=== PATIENT | female | born 1950 | race Caucasian/White ===

== ENCOUNTER → 2020-10-21 | Outpatient (CLI) | payer BC, MEDICARE ==
[~2020-10-21] MED LIST: ACET65TA OR; CLAR5CHW PO; COUM1TAB18 OR; ONDA-1 OR; PERC5TAB8 OR; PERC7.5T8 OR; PROHANCE 279.3MG/ML 15ML VIAL As Ordered ONE; PROHANCE 279.3MG/ML 5ML VIAL As Ordered ONE; PROT1TAB2 PO
--- NOTE | 2020-10-24 16:58 | REP ---
INDICATION: KNOWN LT BREAST CA. COMPARISON: Mammogram 09/06/2020, ultrasound 09/15/2020. TECHNIQUE: [facility] MRI imaging was performed with a dedicated breast coil. Axial, coronal, and sagittal T1 and T2 weighted scans were obtained with and without fat saturation in the usual fashion. The study includes dynamically acquired post gadolinium-enhanced imaging with image subtraction. Maximum intensity projection and multi planar reformation imaging is included as well. This study is interpreted with the aid of [employer], an FDA approved computer aided detection (CAD) software program, on a dedicated breast MRI workstation. The gadolinium enhancement dose is 17 mL of intravenous ProHance. FINDINGS: There is moderate fibroglandular tissue present bilaterally. There is mild bilateral background parenchymal enhancement. No significantly enlarged lymph nodes are seen bilaterally. There is no significant cystic change. At the 6 o'clock position of the left breast there is a spiculated mass, with washout enhancement characteristics, which measures approximately 1.3 cm maximum diameter. Internal biopsy clip is noted. This represents the known carcinoma which was recently biopsied. It is approximately 6 cm from the nipple. More superiorly the 12 o'clock position of the left breast there is a spiculated nodular structure which measures approximately 1.2 cm in maximum diameter. This demonstrates predominantly plateau type 2 enhancement. This has a suspicious appearance. This is approximately 4 cm from the nipple. IMPRESSION: BI-RADS category 6 known left breast cancer. The recently biopsied spiculated nodule at 6 o'clock is identified, approximately 6 cm from the nipple with a maximum diameter of approximately 1.3 cm. However, a 2nd spiculated nodule is seen at the 12 o'clock position approximately 4 cm from the nipple, with maximum diameter 1.2 cm. Recommend second-look ultrasound left breast at 12 o'clock to identify this nodule for potential ultrasound guided biopsy. <Electronically signed by Hermilo Kumar > 10/24/20 0116
== END ==
LOC: M RAD 14:19
PROVIDERS: ATTEND Surgery
DX: C50.312 Malignant neoplasm of lower-inner quadrant of left female breast (principal)
CPT/HCPCS: A9576; C8908

== ENCOUNTER → 2020-11-03 | Outpatient (CLI) | payer MEDICARE ==
[~2020-11-03] MED LIST changes: +ACET1TAB55 PO; +B-122500 PO; +EMER1PAK PO; +ESSETAB4 PO; +MELA3TAB21 PO; +OXYC-517 PO; +PANT40TA29; -PROHANCE 279.3MG/ML 15ML VIAL As Ordered ONE; -PROHANCE 279.3MG/ML 5ML VIAL As Ordered ONE
== END ==
LOC: M LABSMTC 11:51
PROVIDERS: ATTEND Anesthesiology
DX: Z01.812 Encounter for preprocedural laboratory examination (principal); Z20.822 Contact with and (suspected) exposure to COVID-19

== ENCOUNTER 2020-11-08 10:33 | Day surgery (SDC) | payer MEDICARE ==
[~2020-11-08] VITALS: Ht 171.4 cm; Wt 88.5 kg
[~2020-11-08 10:33] MED LIST changes: -ACET1TAB55 PO; +HEPARIN SOD (PORCINE) 5000UNITS/ML 1ML VIAL/SYRINGE SQ ONE; +LR 1,000 ML IV ONE; -OXYC-517 PO; +ceFAZolin SOD 2 GM in IV 1 EA IV ONE
[2020-11-08] MEDS ORDERED: SCOPOLAMINE 1MG TRANSDERMAL PATCH TOP ONE (11:45)
[2020-11-08] MEDS ORDERED: ONDANSETRON 4MG/2ML VIAL As Ordered ONE (12:51)
[2020-11-08] MEDS ORDERED: LIDOCAINE 2% 100MG/5ML SDV (FOR ANES.) As Ordered ONE (12:51)
[2020-11-08] MEDS ORDERED: dexameTHASONE 4 MG/ML 1ML VIAL (J1100 PER 1MG) As Ordered ONE (12:51)
[2020-11-08] MEDS ORDERED: propofoL 200 MG/20 ML VIAL As Ordered ONE ×2 (12:51→16:47)
[2020-11-08] MEDS ORDERED: ROCURONIUM BROMIDE 50 MG/5 ML VIAL As Ordered ONE ×2 (12:51→15:11)
[2020-11-08] MEDS ORDERED: MIDAZOLAM INJ 2MG/2ML VIAL (J2250 PER 1MG) As Ordered ONE (12:52)
[2020-11-08] MEDS ORDERED: fentaNYL 250 MCG/5 ML INJECTION (J3010) As Ordered ONE (12:52)
--- NOTE | 2020-11-08 14:06 | REP ---
INDICATION: LEFT BREAST CA. COMPARISON: None. TECHNIQUE/RADIOTRACER AND DOSE: This procedure was performed by Connie Hernandez [facility], under the direct supervision of Dr. Mohr. Images were reviewed with Dr. Mohr prior to dictation. The risks and benefits of the procedure were explained to the patient and informed consent was obtained both orally and written. Directly prior to the start of the procedure, a formal timeout was done in the exam room. Using topical anesthetic and sterile technique 1.025 mCi of filtered Technetium-99m sulfur colloid was injected subdermally in 8 fractionated periareolar injections. FINDINGS: Images obtained 1 hour after injection shows saroj uptake in the left axilla. IMPRESSION: There is saroj uptake in the left axilla. <Electronically signed by Connie Hernandez > 11/08/20 1356 <Electronically signed by Tarik Mohr > 11/08/20 [id number]
[2020-11-08] MEDS ORDERED: BUPIVACAINE LIPOSOME/PF 1.3% 20ML VIAL (13.3MG/ML)(EXPAREL)(C9290 PER1MG) As Ordered ONE (14:08)
[2020-11-08] MEDS ORDERED: METHYLENE BLUE 0.5% (5MG/ML) 10 ML AMP (PROVAYBLUE) As Ordered ONE (14:13)
[2020-11-08] MEDS ORDERED: ISOSULFAN BLUE(LYMPHAZURIN) 1% 50MG/5ML VIAL As Ordered ONE (14:15)
[2020-11-08] MEDS ORDERED: METOCLOPRAMIDE INJ 10MG/2ML VIAL (J2765 PER 1) As Ordered ONE (15:14)
[2020-11-08] MEDS ORDERED: REMIFENTANIL 1MG 3ML VIAL As Ordered ONE (15:36)
[2020-11-08] MEDS ORDERED: ePHEDrine SULFATE 25 MG/5 ML(5MG/ML) SYRINGE As Ordered ONE (16:06)
[2020-11-08] MEDS ORDERED: PHENYLephrine 500MCG 5ML (100MCG/ML) SYRINGE As Ordered ONE (16:07)
[2020-11-08] MEDS ORDERED: ACETAMINOPHEN 1000MG 100ML IV BTL (OFIRMEV) (J0131 PER 10MG) As Ordered ONE (16:08)
[2020-11-08] MEDS ORDERED: GLYCOPYRROLATE INJ 0.2 MG/ML 2 ML VIAL As Ordered ONE (16:14)
[2020-11-08] MEDS ORDERED: NEOSTIGMINE 10MG/10ML VIAL (J2710 PER 0.5MG) As Ordered ONE (16:14)
[2020-11-08] MEDS ORDERED: SUGAMMADEX SODIUM 500 MG/5 ML VIAL (BRIDION) As Ordered ONE (16:15)
[2020-11-08] MEDS ORDERED: HYDROmorphone HCL 2 MG/ML 1ML VIAL (J1170) As Ordered ONE (16:19)
[2020-11-08] MEDS ORDERED: traMADol 50 MG TAB PO PRN (17:45)
[2020-11-08] MEDS ORDERED: ONDANSETRON 4MG/2ML VIAL IV PRN ×2 (17:45→19:00)
[2020-11-08] MEDS ORDERED: MORPHINE 2 MG/ML 1ML VIAL (J2270) IV PRN (17:45)
[2020-11-08] MEDS ORDERED: MAALOX 30 ML SUSP *UDC PO PRN (18:15)
[2020-11-08] MEDS ORDERED: MOM 30ML SUSPENSION UDC PO PRN (18:15)
[2020-11-08 18:20] VITALS: BP 118/65
--- NOTE | 2020-11-08 18:24 | HPEPDOC ---
[facility] Medical History & Physical Date of Admission Nov 08, 2020 Date of Service: Nov 08, 2020 History and Physical CHIEF COMPLAINT: Postoperative observation HISTORY OF PRESENT ILLNESS: 70-year-old female past medical history of GERD today underwent left breast mastectomy for breast cancer and sentinel node biopsy by Dr. Vuong who asked me to admit the patient for observation. I saw the patient in PACU postoperatively she tells me she's feeling well and pain is controlled and wants to try to eat this evening. Patient has no complaints at this time. PAST MEDICAL/SURGICAL HISTORY: GERD Hysterectomy Cataract surgery Bilateral knee replacement SOCIAL HISTORY: Denies alcohol use actively quit a few months ago used to drink red wine nightly Denies tobacco use actively quit a few months ago Denies illicit drug use FAMILY HISTORY: Mother has a history of breast cancer ALLERGIES: Please see below. REVIEW OF SYSTEMS: 10 point review of systems complete all negative otherwise stated in HPI HOME MEDICATIONS: Please see below. PHYSICAL EXAMINATION: Constitutional: Awake and alert, in no apparent distress ENT: Sclera are clear. Mucosa is moist. Respiratory: Lungs CTA bilaterally. No respiratory distress. No use of accessory muscles. Dressing in place on left breast [address] one axilla and one at the mastectomy site. Serosanguineous drainage Cardiovascular: RRR S1 and S2 are normal, no murmur Gastrointestinal: Abdomen is soft, non distended, non tender, BS present. Musculoskeletal: No lower extremity edema. Neurologic: No focal neurological deficit. Mental Status: A&O x3, normal affect Skin: Warm, dry LABORATORY DATA: See below. IMAGING: See chart MICROBIOLOGY: Please see below. ASSESSMENT/PLAN 70-year-old female admitted for observation postoperatively after left breast mastectomy without completions. # Left breast mastectomy: Managed by Dr. Justice breast surgeon. Admit for observation overnight. CLD. PT/OT eval. Pain control. Zofran for nausea. Cefazolin perioperative. # GERD: Continue Protonix # DVT prophylaxis: Heparin A Yousef Hospitalist Vital Signs Vital Signs Date Time Temp Pulse Resp B/P (MAP) Pulse Ox O2 Delivery O2 Flow Rate FiO2 11/08/20 18:00 97.6 87 18 120/56 (77) 95 Room Air 11/08/20 17:35 2 Home Medications Scheduled Cyanocobalamin (Vitamin B-12) (Vitamin B12) 2,500 Mcg Tablet, 1,000 MCG PO DAILY Melatonin (Melatonin) 3 Mg Tablet.er, 3 MG PO QPM Pantoprazole Sodium (Pantoprazole Sodium) 40 Mg Tablet.dr, DAILY Miscellaneous Medications Ascorbic Acid/Multivit-Min (Emergen-C 1,000 mg Packet) 1,000 Mg Effpowdpkt, 1 JEFF PO Allergies Coded Allergies: ENVIROMENTAL (Verified Allergy, Unknown, 11/02/20) A-FIB/CHADSVASC A-FIB History Current/History of A-Fib/PAF?: No NADIYA GONZALES MD Nov 08, 2020 18:24
[2020-11-08] MEDS: LR 1,000 ML IV SCH (18:51)
[2020-11-08 18:56] LABS: BASO % 0.3 % (0.0-1.0); EOS % 0.1 % (0.0-3.0); HEMATOCRIT 42.9 % (36.0-47.0); HEMOGLOBIN 14.2 g/dl (12.0-15.5); LYMPH # 0.9 10^3/uL (1.5-5.0); LYMPH % 8.1 % (24.0-44.0); MEAN CORPUSCULAR HEMOGLOBIN 32.9 pg (27.0-33.0); MEAN CORPUSCULAR HGB CONC 33.1 g/dl (32.0-36.5); MEAN CORPUSCULAR VOLUME 99.5 fl (80.0-96.0); MONO # 0.2 10^3/uL (0.0-0.8); MONO % 1.4 % (0.0-5.0); NEUTROPHILS # 10.3 10^3/uL (1.5-8.5); NEUTROPHILS % 89.7 % (36.0-66.0); PLATELET COUNT, AUTOMATED 169 10^3/uL (150-450); RED BLOOD COUNT 4.31 10^6/uL (4.00-5.40); WHITE BLOOD COUNT 11.4 10^3/uL (4.0-10.0)
[2020-11-08] MEDS ORDERED: HYDROMORPHONE HCL 0.5 MG/ 0.5 ML SYRINGE (J1170 PER 1) IV PRN (19:00)
[2020-11-08] MEDS ORDERED: LR 1,000 ML IV SCH (19:00)
[2020-11-08] MEDS ORDERED: oxyCODONE 5MG TAB PO PRN (19:00)
[2020-11-08] MEDS ORDERED: fentaNYL 100 MCG/2 ML INJECTION (J3010) IV PRN (19:00)
[2020-11-08 19:20] VITALS: BP 118/62
[2020-11-08 19:21] LABS: BLOOD UREA NITROGEN 11 MG/DL (7-18); CALCIUM LEVEL 10.1 MG/DL (8.8-10.2); CARBON DIOXIDE LEVEL 27 MEQ/L (21-32); CHLORIDE LEVEL 107 MEQ/L (98-107); CREATININE FOR GFR 0.68 MG/DL (0.55-1.30); GLOMERULAR FILTRATION RATE > 60.0 (>45); GLUCOSE, FASTING 146 MG/DL (70-100); POTASSIUM SERUM 3.5 MEQ/L (3.5-5.1); SODIUM LEVEL 141 MEQ/L (136-145)
[2020-11-08 20:00] VITALS: BP 115/64
[2020-11-08 20:20] VITALS: BP 92/46
[2020-11-08] MEDS ORDERED: PANTOPRAZOLE 20 MG TAB PO SCH (21:00)
[2020-11-08 21:20] VITALS: BP 91/51
[2020-11-08] MEDS: ACETAMINOPHEN TAB 650MG DOSE (2X325MG) PO PRN (21:27)
[2020-11-08] MEDS: DOCUSATE SODIUM 100MG CAPSULE PO SCH (21:27)
[2020-11-08] MEDS: HEPARIN SOD (PORCINE) 5000UNITS/ML 1ML VIAL/SYRINGE SC SCH (21:27)
[2020-11-08] MEDS: ceFAZolin SOD 2 GM in IV 1 EA IV SCH (21:28)
--- NOTE | 2020-11-08 21:59 | ROOPDOC ---
[facility] Report Of Operation Report of Operation DATE OF PROCEDURE: 11/08/20 PREPROCEDURE DIAGNOSES: Lest breast cancer ans second suspicious left breast lesion seen on MRI POSTPROCEDURE DIAGNOSES: same PROCEDURE: Left simple mastectomy with intraop methylene blue injection, Left sentinel lymph node biopst, left pectoralis and serratus muscle block with Exparel SURGEON: Caroline Barraza ANESTHESIA: general ESTIMATED BLOOD LOSS: Approximately 50 mL. COMPLICATIONS: none REMARKS: one sentinel lymph node identified DESCRIPTION OF PROCEDURE: INDICATIONS: Ms. Frazier is a 70 year old lady who was found to have left breast cancer and second suspicious lesion in the left breast. Second look US was offered to the patient to evaluate the second lesion, however, patient expressed that she is interested in mastectomy. At this time there is no need for second look US of the left breast as the whole breast will be removed. I also explained to the patient that because she has invasive breast cancer we need to evaluate her lymph nodes with sentinel lymph node biopsy. Risks and possible complications of surgical procedure including bleeding, infection and injury to surrounding structures were explained to the patient and she wished to proceed. Consent was signed. Subcutaneous heparin 5000 units was given to patient in the preop area. Lymphoscintigraphy was reviewed preoperatively and the tracer was found in the left axilla. Patient was marked in the preop area when she was sitting up to allow best cosmetic results. DETAILS: Patient was taken to the operating room and placed supine on the operating room table. Pillow was placed under her knees. Foam was placed under her heels. A sign in was called stating patients name, date of and the procedure to be done. Preoperative antibiotics were infused. Smooth induction of general anesthesia was done. Patients hands were extended on arm rests. Care was taken not to over extend patients arms. Sequential compression devices were placed and assured to function correctly. Patients left breast and axilla were prepped and draped in the usual fashion. Neoprobe was used to juan francisco the site of maximal signal in the axilla although the strength of signal was low. Methylene blue subdermal injection was done into periareolar and right upper outer quadrant to improve probability of finding sentinel lymph nodes. The breast was massaged for a 5 minutes post injection. Since there is no Hydromark clip present and the cancer is hard to see on the periop ultrasound, no location was marked on the specimen. Appropriate time out was done and patients name, date of , and the procedure to be done were confirmed. Procedure was started with left mastectomy. The incision was made along the previously marked border to achieve the scar at the inframammary fold. Subcutaneous flaps were developed using electrocautery dissection. Dissection was carried toward the inframammary fold inferiorly, toward sternum medially, toward inferior aspect of clavicle superiorly and toward the axilla laterally. Breast tissue was dissected from the muscle posteriorly and pectoralis fascia was taken with the specimen. The dissection was carried all the way to the T[place] of [place] making sure that axilla is not en tered prematurely. Breast specimen was marked for orientation with short stitch marking superior edge of mastectomy and long stitch marking lateral edge of mastectomy. The specimen was weighted and weight of 586 grams was reported. The specimen was then placed in formaldehyde, and passed to pathology. Mastectomy cavity was irrigated and hemostasis was achieved. Next, our attention was turned toward the left axilla which was accessed from the mastectomy site. Clavipectoral fascia was opened over the site of maximum Neoprobe signal. No obvious blue nodes were seen. No blue lymphatics were noted either. Area of high signal was identified under the pectoralis major, deep in axilla. One sentinel lymph node was identified and 10 second ex-vivo count was 2755. This was not a blue node. Specimen was labeled appropriately and sent to pathology. Axilla was explored for presence of any additional lymph nodes and none were identified. 10 second count of the background was 6. The axilla was irrigated and hemostasis was achieved. Next, clavipectoral fascia was loosely approximated with interrupted 3-0 Vicryl Stitches. At this point, 19 [place] Jung drain was placed into the mastectomy cavity through a separate stab incision and secured at the skin with stitches. The 10 [place] Jung drain was placed in the axilla through a separate stab incision and secures at the skin with stitches. Next, pectoral and serratus plane blocks on the left side were also done with Exparel. Deep dermal sutures were placed with 2-0 Vicryl to approximate mastectomy site edges. Dermis was closed with 3-0 Vicryl. Skin was closed with 4-0 Monocryl. Surgical glue was applied to the top of the incision. Prineo skin closing system dressing was applied next to the incision. Surgical gauze was placed over the incision and surgical bra was placed. Final instruments and sponge count were correct. Patient emerged from general anesthesia without any problems. Patient tolerated procedure well and was taken to recovery unit in stable condition. CAROLINE BARRAZA DO Nov 08, 2020 21:59
[2020-11-08 23:00] VITALS: BP_SYST 100; BP_SYST 90; BP_DIAS 44; BP_DIAS 52
[2020-11-09] MEDS: LR 1,000 ML IV SCH (01:26)
[2020-11-09 02:00] VITALS: BP 110/62
[2020-11-09] MEDS: ceFAZolin SOD 2 GM in IV 1 EA IV SCH ×2 (04:57→12:01)
[2020-11-09 06:00] VITALS: BP 106/64
[2020-11-09] MEDS: DOCUSATE SODIUM 100MG CAPSULE PO SCH (08:06)
[2020-11-09] MEDS: HEPARIN SOD (PORCINE) 5000UNITS/ML 1ML VIAL/SYRINGE SC SCH (08:06)
[2020-11-09] MEDS: ACETAMINOPHEN TAB 650MG DOSE (2X325MG) PO PRN (08:06)
--- NOTE | 2020-11-09 08:21 | IPNPDOC ---
Subjective Date Seen The patient was seen on 11/09/20. Subjective Chief Complaint/HPI 70-year-old lady with left breast cancer status post left breast simple mastectomy and left sentinel lymph node biopsy done yesterday, admitted to the hospital for observation and pain control. Patient did well overnight. There were no acute events. She was hemodynamically stable. Drain output is low. Pain is well-controlled. Patient's nausea is also well controlled. She was able to tolerate some solid foods this morning. Objective Physical Examination Other physical findings Alert and oriented 3 Breathing comfortably on room air Left mastectomy site without hematoma, [address] with small amount of serous sanguinous drainage. Both drains were stripped at bedside. Mastectomy flaps are viable. Patient has good range of motion Abdomen nondistended Assessment /Plan Assessment 70-year-old woman with left breast cancer status post left breast simple mastectomy and left sentinel lymph node biopsy done yesterday. - Drain teaching by nursing staff today, record output per 24h, please bring this to the clinic next Saturday at 1 PM - Pain control, Tylenol [id number] and can be discharged with oxycodone 5 every 6h when necessary - No need for outpatient antibiotics, complete perioperative antibiotics today - Okay to discharge home today at noon as long as she tolerates lunch without nausea - Stop IVF - Encourage ambulation and incentive spirometer - Please keep patient my postop instructions regarding simple mastectomy - Plan was discussed with nursing staff this morning. Plan/VTE VTE Prophylaxis Ordered?: Yes VS, I&O, 24H, Fishbone Vital Signs/I&O Vital Signs Date Time Temp Pulse Resp B/P (MAP) Pulse Ox O2 Delivery O2 Flow Rate FiO2 11/09/20 06:00 98.6 54 18 106/64 (78) 94 Room Air 11/09/20 02:00 2.0 I&O- Last 24 Hours up to 6 AM 11/09/20 06:00 Intake Total 2310 ml Output Total 1160 ml Balance 1150 ml Laboratory Data 24H LABS Laboratory Tests 2 11/08/20 18:42: Immature Granulocyte % (Auto) 0.4, Neutrophils (%) (Auto) 89.7H, Lymphocytes (%) (Auto) 8.1L, Monocytes (%) (Auto) 1.4, Eosinophils (%) (Auto) 0.1, Basophils (%) (Auto) 0.3, Neutrophils # (Auto) 10.3H, Lymphocytes # (Auto) 0.9L, Monocytes # (Auto) 0.2, Eosinophils # (Auto) 0.0, Basophils # (Auto) 0.0, Nucleated Red Blood Cells % (auto) 0.0, Anion Gap 7L, Glomerular Filtration Rate > 60.0, Calcium Level 10.1 CBC/BMP Laboratory Tests 11/08/20 18:42 VIJI BARRAZA DO Nov 09, 2020 08:21
[2020-11-09 09:06] LABS: HEMATOCRIT 37.5 % (36.0-47.0); HEMOGLOBIN 12.4 g/dl (12.0-15.5); MEAN CORPUSCULAR HEMOGLOBIN 33.7 pg (27.0-33.0); MEAN CORPUSCULAR HGB CONC 33.1 g/dl (32.0-36.5); MEAN CORPUSCULAR VOLUME 101.9 fl (80.0-96.0); PLATELET COUNT, AUTOMATED 154 10^3/uL (150-450); RED BLOOD COUNT 3.68 10^6/uL (4.00-5.40); WHITE BLOOD COUNT 12.6 10^3/uL (4.0-10.0)
[2020-11-09 09:32] LABS: BLOOD UREA NITROGEN 9 MG/DL (7-18); CALCIUM LEVEL 10.5 MG/DL (8.8-10.2); CARBON DIOXIDE LEVEL 29 MEQ/L (21-32); CHLORIDE LEVEL 105 MEQ/L (98-107); CREATININE FOR GFR 0.75 MG/DL (0.55-1.30); GLOMERULAR FILTRATION RATE > 60.0 (>45); GLUCOSE, FASTING 113 MG/DL (70-100); POTASSIUM SERUM 3.5 MEQ/L (3.5-5.1); SODIUM LEVEL 142 MEQ/L (136-145)
--- NOTE | 2020-11-09 11:29 | IPNPDOC ---
Text Note Date of Service The patient was seen on 11/09/20. NOTE Subjective: She was seen and examined this morning at bedside. Patient had dinner as well as breakfast which she tolerated well. Patient tells me pain is well controlled denies being any pain right now. Patient saw her surgeon this morning Dr. Yvonne parson for discharge instructions as well as how to care for her drains and empty them and give her an appointment to see her in the clinic on Saturday at 1 PM. Objective: Constitutional: Awake and alert, in no apparent distress ENT: Sclera are clear. Mucosa is moist. Respiratory: Lungs CTA bilaterally. No respiratory distress. No use of accessory muscles. Dressing in place on left breast [address] one axilla and one at the mastectomy site. Serosanguineous drainage Cardiovascular: RRR S1 and S2 are normal, no murmur Gastrointestinal: Abdomen is soft, non distended, non tender, BS present. Musculoskeletal: No lower extremity edema. Neurologic: No focal neurological deficit. Mental Status: A&O x3, normal affect Skin: Warm, dry Assessment/plan: 70-year-old female admitted for observation postoperatively after left breast mastectomy without complications # Left breast mastectomy: Managed by Dr. Justice breast surgeon. Admitted for observation overnight. CLD.Pain control. Zofran for nausea. Cefazolin perioperative. No need for antibiotics on discharge. Patient was cleared for discharge today by her surgeon. Discharge instructions given to patient will see her surgeon on Saturday at 1 PM. # GERD: Continue Protonix # DVT prophylaxis: Heparin A Bhavna Hospitalist Miles FERRER, I+O [employer] I+O Laboratory Tests 11/08/20 18:42 11/09/20 08:25 Vital Signs Date Time Temp Pulse Resp B/P (MAP) Pulse Ox O2 Delivery O2 Flow Rate FiO2 11/09/20 06:00 98.6 54 18 106/64 (78) 94 Room Air 11/09/20 02:00 2.0 I&O- Last 24 Hours up to 6 AM 11/09/20 06:00 Intake Total 2310 ml Output Total 1160 ml Balance 1150 ml NADIYA GONZALES MD Nov 09, 2020 11:29
[2020-11-09] MEDS ORDERED: ACET1TAB55 PO (11:32)
[2020-11-09] MEDS ORDERED: OXYC-517 PO (11:32)
== END 2020-11-09 13:51 | disposition home or self-care (01) ==
LOC: M SDC 10:33 → M MS5PR 18:33 → M SDC 11-09 13:51
PROVIDERS: ATTEND Surgery
DX: C50.912 Malignant neoplasm of unspecified site of left female breast (principal); Z17.0 Estrogen receptor positive status [ER+]; K21.9 Gastro-esophageal reflux disease without esophagitis; G43.909 Migraine, unspecified, not intractable, without status migrainosus; Z87.891 Personal history of nicotine dependence; Z79.899 Other long term (current) drug therapy; K57.92 Diverticulitis of intestine, part unspecified, without perforation or abscess without bleeding
CPT/HCPCS: 19303; 36415; 38525; 64450; 78195; 80048; 85025; 85027; 86850; 86900; 86901; 88307; 96361; 96365; 96366; 96372; 97161; A9541; C9290; J0131; J0690; J1100; J1170; J1644; J2250; J2370; J2405; J2765; J3010; Q9968

== ENCOUNTER → 2020-12-09 | Outpatient (CLI) | payer MEDICARE ==
[~2020-12-09] MED LIST changes: +ACET1TAB55 PO; +ANAS1TAB2 PO; -HEPARIN SOD (PORCINE) 5000UNITS/ML 1ML VIAL/SYRINGE SQ ONE; -LR 1,000 ML IV ONE; +OXYC-517 PO; -ceFAZolin SOD 2 GM in IV 1 EA IV ONE
--- NOTE | 2020-12-09 16:49 | DEXAMM ---
INDICATION: POT MENOPAUSAL. COMPARISON: None. TECHNIQUE: Bone density was measured using dual-energy x-ray absorptiometry (DEXA). FINDINGS: AP SPINE L1-L4 BMD 0.944 g/cm2 Young Adult T-Score -2.0 Age Matched Z-Score -0.4. LT FEMUR, TOTAL BMD 0.671 g/cm2 Young Adult T-Score -2.7 Age Matched Z-Score -1.3. LT NECK BMD 0.698 g/cm2 Young Adult T-Score -2.4 Age Matched Z-Score -0.8. RT FEMUR, TOTAL BMD 0.663 g/cm2 Young Adult T-Score -2.7 Age Matched Z-Score -1.4. RT NECK BMD 0.706 g/cm2 Young Adult T-Score -2.4 Age Matched Z-Score -0.8. IMPRESSION: There is low bone density of the spine. There is low bone density of the left hip. There is low bone density of the right hip. FOLLOW-UP: Recommendation for the next bone density exam: 2 years. <Electronically signed by Hermilo Kumar > 12/09/20 [id number]
== END ==
LOC: M WHC 13:10
PROVIDERS: ATTEND Internal Medicine Hematology & Oncology
DX: C50.919 Malignant neoplasm of unspecified site of unspecified female breast (principal); Z78.0 Asymptomatic menopausal state